=== PATIENT | female | born 2000 | race Two or more races ===

== ENCOUNTER 2025-05-05 17:18 | Emergency (ER) | payer MEDICAID, OTHER ==
[~2025-05-05] VITALS: Ht 170.2 cm; Wt 68.0 kg
[2025-05-05 17:57] VITALS: TEMP 97.8
[2025-05-05] MEDS ORDERED: IBUPROFEN 400 MG TABLET ONE (18:06)
[2025-05-05] MEDS: IBUPROFEN 400 MG TABLET PO ONE (18:40)
[2025-05-05] MEDS ORDERED: MUPI15CR TP (18:47)
[2025-05-05 19:11] VITALS: BP 122/74; O2SAT 100
== END 2025-05-05 19:06 | disposition home or self-care (01) ==
LOC: ER 17:18
DX: S80.01XA Contusion of right knee, initial encounter (principal); S80.02XA Contusion of left knee, initial encounter; S30.11XA Contusion of abdominal wall, initial encounter; M25.512 Pain in left shoulder; X58.XXXA Exposure to other specified factors, initial encounter; Y93.89 Activity, other specified; Y92.89 Other specified places as the place of occurrence of the external cause; Y99.8 Other external cause status
CPT/HCPCS: 73000-TC; 73502; 73564-TC; 84703-TC